=== PATIENT | male | born 1965 | race Hispanic/Latino ===

== ENCOUNTER 2018-10-01 06:40 | Emergency (ER) | payer SELFPAY ==
[~2018-10-01] VITALS: Ht 167.6 cm; Wt 71.2 kg
--- OUTSIDE RECORDS SUMMARY | 2018-10-01 06:45 | XMS REPORT | Continuity of Care Document ---
Author Author [facility] Interface Address Unknown Phone Unavailable Problems Problem Status Onset Date Classification Date Reported Comments Source CHEST PAIN Active 09/24/2018 [facility] Discharge Diagnosis: Vertigo 02/11/2017 02/14/2017 [facility] WEAKNESS Active 02/11/2017 [facility] GERD (<span ID="[id number]</span>) Active Problem 02/14/2017 [facility] Hypercholesteremia Active Problem 02/14/2017 [facility] Hypercholesterolemia Active Problem 02/14/2017 [facility] Multiple lipomas Active Problem 02/14/2017 [facility] Medications Medication Details Route Status Patient Instructions Ordering Provider Order Date Source meclizine 25 mg oral tablet 25 mg=1 tab, PO, TID, PRN for dizziness, X 20 day, # 60 tab, 0 Refill(s) Active 02/11/2017 [facility] Meclizine 25 mg, 1 tab, Route: PO, Drug form: TAB, ONCE, Dosing Weight 74.091, kg, Priority: STAT, Start date: 02/11/17 7:21:00 CDT, Stop date: 02/11/17 7:21:00 CDTNotes: (Same as: Antivert) Inactive 02/11/2017 [facility] Sodium Chloride 0.154 MEQ/ML Injectable Solution 1,000 mL, 1,000 ml/hr, Infuse Over: 1 hr, Route: IV, ONCE, Priority: STAT, Dosing Weight 74.091 kg, Start date: 02/11/17 6:14:00 CDT, Duration: 1 doses or times, Stop date: 02/11/17 6:14:00 CDT Inactive 02/11/2017 [facility] Allergies, Adverse Reactions, Alerts Substance Category Reaction Severity Reaction type Status Date Reported Comments Source Immunizations Immunization Date Given Site Status Last Updated Comments Source Results Order Name Results Value Reference Range Date Interpretation Comments Source Chest 1view DX Chest 1view DX Clinical Indication: - cp Comparison: 02/11/2017 FINDINGS: AP chest radiograph was obtained. MEDIASTINUM: The cardiac silhouette is normal in size. The aorta is unremarkable. LUNGS: Lung volumes are maintained. There are no focal infiltrates or effusions. There are no pneumothoraces noted. BONES: The visualized osseous structures are unremarkable. IMPRESSION: No acute infiltrates or effusions. SL: [id number] 09/24/2018 - - Read by: David Sidhu MD Dictated Date/time: 09/24/18 06:18 Electronically Signed by: David Sidhu MD 09/24/18 06:18 FINAL REPORT [facility] URINE AND STOOL UA Urobilinogen <=1.0 mg/dL 0.1 - 1.0 02/11/2017 [facility] URINE AND STOOL UA Color Ltyellow 02/11/2017 [facility] URINE AND STOOL UA Spec Grav 1.008 <=1.030 02/11/2017 [facility] URINE AND STOOL UA pH 7.0 5.0 - 8.0 02/11/2017 [facility] URINE AND STOOL UA Turbidity Clear (02/11/17 9:27 AM) Clear 02/11/2017 [facility] URINE AND STOOL UA Bili Negative *NA* (02/11/17 9:27 AM) Negative 02/11/2017 [facility] URINE AND STOOL UA Ketones Negative mg/dL Negative mg/dL 02/11/2017 [facility] URINE AND STOOL UA Glucose Negative mg/dL Negative mg/dL 02/11/2017 [facility] URINE AND STOOL UA Nitrite Negative (02/11/17 9:27 AM) Negative 02/11/2017 [facility] URINE AND STOOL UA Blood Negative (02/11/17 9:27 AM) Negative 02/11/2017 [facility] URINE AND STOOL UA Protein Negative mg/dL Negative mg/dL 02/11/2017 [facility] URINE AND STOOL UA Sq Epi Occasional /LPF Few /LPF 02/11/2017 [facility] URINE AND STOOL UA Bacteria Occasional /HPF None Seen /HPF 02/11/2017 [facility] URINE AND STOOL UA Leuk Est Negative (02/11/17 9:27 AM) Negative 02/11/2017 [facility] URINE AND STOOL UA Mucus Few /LPF None Seen /LPF 02/11/2017 [facility] CARDIAC ENZYMES Troponin-I null 0.00 - 0.40 02/11/2017 [facility] CHEM PANEL Magnesium Lvl 2.1 mg/dL 1.8 - 2.4 02/11/2017 [facility] CHEM PANEL A/G Ratio 1.1 0.7 - 1.6 02/11/2017 [facility] CHEM PANEL AGAP 12.6 meq/L 10.0 - 20.0 02/11/2017 [facility] CHEM PANEL Globulin 3.5 g/dL 2.7 - 4.2 02/11/2017 [facility] CHEM PANEL B/C Ratio 13 6 - 25 02/11/2017 [facility] CHEM PANEL eGFR 88 mL/min/1.73m2 02/11/2017 Result Comment: The eGFR is calculated using the CKD-EPI formula. In most young, healthy individuals the eGFR will be >90 mL/min/1.73m2. The eGFR declines with age. An eGFR of 60-89 may be normal in some populations, particularly the elderly, for whom the CKD-EPI formula has not been extensively validated. Use of the eGFR is not recommended in the following populations: Individuals with unstable creatinine concentrations, including patients and those with serious co-morbid conditions. Patients with extremes in muscle mass or diet. The data above are obtained from the National Kidney Disease Education Program (NKDEP) which additionally recommends that when the eGFR is used in patients with extremes of body mass index for purposes of drug dosing, the eGFR should be multiplied by the estimated BMI. [facility] CHEM PANEL Glucose Lvl 112 mg/dL 70 - 99 02/11/2017 [facility] CHEM PANEL Creatinine Lvl 1.00 mg/dL 0.50 - 1.40 02/11/2017 [facility] CHEM PANEL Sodium Lvl 140 meq/L 135 - 145 02/11/2017 [facility] CHEM PANEL BUN 13 mg/dL 7 - 22 02/11/2017 [facility] CHEM PANEL CO2 26 meq/L 24 - 32 02/11/2017 [facility] CHEM PANEL Potassium Lvl 3.6 meq/L 3.5 - 5.1 02/11/2017 [facility] CHEM PANEL Chloride Lvl 105 meq/L 95 - 109 02/11/2017 [facility] CHEM PANEL Calcium Lvl 8.0 mg/dL 8.5 - 10.5 02/11/2017 [facility] CHEM PANEL Total Protein 7.3 g/dL 6.4 - 8.4 02/11/2017 [facility] CHEM PANEL AST 22 unit/L 0 - 37 02/11/2017 [facility] CHEM PANEL ALT 28 unit/L 0 - 65 02/11/2017 [facility] CHEM PANEL Albumin Lvl 3.8 g/dL 3.5 - 5.0 02/11/2017 [facility] CHEM PANEL Bili Total 0.4 mg/dL 0.2 - 1.3 02/11/2017 [facility] CHEM PANEL Alk Phos 78 unit/L 39 - 136 02/11/2017 [facility] RDW 12.6 % 11.5 - 14.5 02/11/2017 [facility] MCV 86.1 fL 80.0 - 94.0 02/11/2017 [facility] MCHC 36.2 g/dL 32.0 - 36.0 02/11/2017 [facility] MCH 31.2 pg 27.0 - 31.0 02/11/2017 [facility] Platelet 237 K/CMM 133 - 450 02/11/2017 [facility] MPV 8.8 fL 7.4 - 10.4 02/11/2017 [facility] RBC 5.14 M/CMM 4.70 - 6.10 02/11/2017 [facility] Hgb 16.0 g/dL 14.0 - 18.0 02/11/2017 [facility] WBC 6.5 K/CMM 3.7 - 10.4 02/11/2017 [facility] Hct 44.3 % 42.0 - 54.0 02/11/2017 [facility] Eosinophils # 0.2 K/CMM 0.0 - 0.5 02/11/2017 [facility] Basophils 0.5 % 0.0 - 1.0 02/11/2017 [facility] Eosinophils 3.5 % 0.0 - 4.0 02/11/2017 [facility] Segs-Bands # 3.6 K/CMM 1.5 - 8.1 02/11/2017 [facility] Monocytes # 0.5 K/CMM 0.0 - 0.8 02/11/2017 [facility] Lymphocytes # 2.2 K/CMM 1.0 - 5.5 02/11/2017 [facility] Monocytes 7.6 % 2.0 - 12.0 02/11/2017 [facility] Lymphocytes 33.5 % 20.0 - 40.0 02/11/2017 [facility] Segs 54.9 % 45.0 - 75.0 02/11/2017 [facility] Chest 1view DX Chest 1view DX EXAM: Chest 1view DX DATE: 02/11/2017 6:14 AM CDT INDICATION: Chest pain - cough COMPARISON: None. IMPRESSION: Grossly normal cardiac silhouette and mediastinum. No focal consolidation, significant pleural effusion or pneumothorax. SL: [id number] 02/11/2017 - - Read by: Lawrence Hampton MD Dictated Date/time: 02/11/17 08:03 Electronically Signed by: Lawrence Hampton MD 02/11/17 08:12 FINAL REPORT [facility] Brain wo contrast CT Brain wo contrast CT EXAM: CT BRAIN WITHOUT CONTRAST DATE: 02/11/2017 6:14 AM CDT INDICATION: - dizzy ADDITIONAL INFORMATION AND CT DLP: 901.26 mGy-cm. COMPARISON: None. TECHNIQUE: Routine axial CT images of the brain were obtained. IV contrast: None. FINDINGS: Non-contrast images of the head demonstrate no edema, hemorrhage, mass lesion or other acute intracranial abnormality. Priest-white matter distinction is preserved. The ventricles are normal. The basal cisterns and sulci are normal in size. Atherosclerotic calcification of the distal internal carotid arteries. A 1.2 cm partially calcified superior parietal scalp lesion is present. Mild chronic inflammatory change of the paranasal sinus. Partial opacification of the mastoid air cells. IMPRESSION: 1. No definite acute infarct or intracranial hemorrhage detected. If there is further concern for intracranial pathology or acute stroke, MRI of the brain may be performed for complete assessment. SL: [id number] 02/11/2017 - - Read by: Lawrence Hampton MD Dictated Date/time: 02/11/17 07:39 Electronically Signed by: Lawrence Hampton MD 02/11/17 07:43 FINAL REPORT [facility] Vital Signs Vital Sign Value Date Comments Source Systolic (mm Hg) 128 02/11/2017 [facility] Diastolic (mm Hg) 83 02/11/2017 [facility] Temperature Oral (F) 97.5 F 02/11/2017 [facility] Respitory Rate 20 02/11/2017 [facility] Respitory Rate 20 02/11/2017 [facility] Heart Rate 78 02/11/2017 [facility] Systolic (mm Hg) 139 02/11/2017 [facility] Diastolic (mm Hg) 92 02/11/2017 [facility] Systolic (mm Hg) 124 02/11/2017 [facility] Diastolic (mm Hg) 89 02/11/2017 [facility] Heart Rate 75 02/11/2017 [facility] Respitory Rate 20 02/11/2017 [facility] Temperature Oral (F) 97.4 F 02/11/2017 [facility] Temperature Oral (F) 97.8 F 02/11/2017 [facility] Heart Rate 75 02/11/2017 [facility] Height 167.64 cm 02/11/2017 [facility] BMI Calculated 26.36 02/11/2017 [facility] Weight 74.091 02/11/2017 [facility] Encounters Location Location Details Encounter Type Encounter Number Reason For Visit Attending Provider ADM Date DC Date Status Source Outpatient [id number] JUAN SERVIN 11/09/2016 Active [facility] Outpatient [id number] JUAN SERVIN 01/12/2017 Active [facility] Outpatient [id number] LINDSEY ORTIZ 01/27/2017 Active [facility] Emergency [id number] Eddie Catalan 02/11/2017 02/11/2017 [facility] Outpatient [id number] JUAN SERVIN 06/13/2017 Active [facility] Outpatient [id number] JUAN SERVIN 05/04/2018 Active [facility] Outpatient [id number] JUAN SERVIN 07/27/2018 Active [facility] Outpatient [id number] JUAN SERVIN 10/10/2018 Active [facility] Procedures Procedure Code Date Perfomer Comments Source
--- OUTSIDE RECORDS SUMMARY | 2018-10-01 06:46 | XMS REPORT | Summary of Care ---
Author Author [facility] Organization [facility] Address Unknown Phone Unavailable Encounter AB Rios(ARCELIA) [id number] Date(s): 02/11/17 - 02/11/[address] [facility] [address] [place] [address]- Discharge Diagnosis: Vertigo Discharge Disposition: Home or Self Care Attending Physician: Eddie Catalan MD Vital Signs 1 2 3 Most recent to oldest [Reference Range]: 167.64 cm (02/11/17 5:46 AM) Height 97.5 DegF (02/11/17 11:10 AM) 97.4 DegF (02/11/17 7:55 AM) 97.8 DegF (02/11/17 6:02 AM) Temperature Oral [96.4-99.1 DegF] 128/83 mmHg (02/11/17 11:10 AM) 139/92 mmHg (02/11/17 9:25 AM) 124/89 mmHg (02/11/17 7:55 AM) Blood Pressure [90-140/60-90 mmHg] 20 BRMIN (02/11/17 11:10 AM) 20 BRMIN (02/11/17 9:25 AM) 20 BRMIN (02/11/17 7:55 AM) Respiratory Rate [14-20 BRMIN] 78 bpm (02/11/17 9:25 AM) 75 bpm (02/11/17 7:55 AM) 75 bpm (02/11/17 6:02 AM) Peripheral Pulse Rate [60-100 bpm] 74.091 kg (02/11/17 5:46 AM) Weight 26.36 m2 (02/11/17 5:46 AM) Body Mass Index Problem List Condition Effective Dates Status Health Status Informant GERD Active (gastroesophageal reflux disease)(Confirmed) Hypercholesteremia(C Active onfirmed) Hypercholesterolemia Active (Confirmed) Multiple Active lipomas(Confirmed) Multiple Active lipomas(Confirmed) Allergies, Adverse Reactions, Alerts Substance Reaction Severity Status NKDA Active Medications meclizine 25 mg, 1 tab, Route: PO, Drug form: TAB, ONCE, Dosing Weight 74.091, kg, Priorit y: STAT, Start date: 02/11/17 7:21:00 CDT, Stop date: 02/11/17 7:21:00 CDT Notes: (Same as: Antivert) Start Date: 02/11/17 Stop Date: 02/11/17 Status: Completed meclizine 25 mg oral tablet 25 mg=1 tab, PO, TID, PRN for dizziness, X 20 day, # 60 tab, 0 Refill(s) Start Date: 02/11/17 Stop Date: 03/03/17 Status: Ordered NS (Bolus) IV 1,000 mL, 1,000 ml/hr, Infuse Over: 1 hr, Route: IV, ONCE, Priority: STAT, Dosin g Weight 74.091 kg, Start date: 02/11/17 6:14:00 CDT, Duration: 1 doses or times , Stop date: 02/11/17 6:14:00 CDT Start Date: 02/11/17 Stop Date: 02/11/17 Status: Completed Results ELECTROLYTES Most recent to 1 oldest [Reference Range]: Sodium Lvl [135-145 140 mEq/L mEq/L] (02/11/17 6:23 AM) Potassium Lvl 3.6 mEq/L [3.5-5.1 mEq/L] (02/11/17 6:23 AM) Chloride Lvl [95-109 105 mEq/L mEq/L] (02/11/17 6:23 AM) CO2 [24-32 mEq/L] 26 mEq/L (02/11/17 6:23 AM) AGAP [10.0-20.0 12.6 mEq/L mEq/L] (02/11/17 6:23 AM) CHEM PANEL Most recent to 1 oldest [Reference Range]: Creatinine Lvl 1.00 mg/dL [0.50-1.40 mg/dL] (02/11/17 6:23 AM) eGFR 88 mL/min/1.73m2 1 *NA* (02/11/17 6:23 AM) BUN [7-22 mg/dL] 13 mg/dL (02/11/17 6:23 AM) B/C Ratio [6-25] 13 (02/11/17:23 AM) Glucose Lvl [70-99 112 mg/dL mg/dL] *HI* (02/11/17:23 AM) Total Protein 7.3 g/dL [6.4-8.4 g/dL] (02/11/1723 AM) Albumin Lvl [3.5-5.0 3.8 g/dL g/dL] (02/11/1723 AM) Globulin [2.7-4.2 3.5 g/dL g/dL] (02/11/1723 AM) A/G Ratio [0.7-1.6] 1.1 (02/11/1723 AM) Calcium Lvl 8.0 mg/dL [8.5-10.5 mg/dL] *LOW* (02/11/1723 AM) Magnesium Lvl 2.1 mg/dL [1.8-2.4 mg/dL] (02/11/17:23 AM) ALT [0-65 unit/L] 28 unit/L (02/11/17:23 AM) AST [0-37 unit/L] 22 unit/L (02/11/17:23 AM) Alk Phos [39-136 78 unit/L unit/L] (02/11/17:23 AM) Bili Total [0.2-1.3 0.4 mg/dL mg/dL] (02/11/17:23 AM) 1Result Comment: The eGFR is calculated using the [...] from the National Kidney Disease Education Program ( NKDEP) which additionally recommends that when the eGFR is used in patients with extremes of body mass index for purposes of drug dosing, the eGFR should be mul tiplied by the estimated BMI. CARDIAC ENZYMES Most recent to 1 oldest [Reference Range]: Troponin-I <0.02 ng/mL [0.00-0.40 ng/mL] (02/11/17 6:23 AM) URINE AND STOOL Most recent to 1 oldest [Reference Range]: UA Turbidity [Clear] Clear (02/11/17 9:27 AM) UA Color Ltyellow *NA* (02/11/17 9:27 AM) UA pH [5.0-8.0] 7.0 (02/11/17 9:27 AM) UA Spec Grav 1.008 [<=1.030] (02/11/17 9:27 AM) UA Glucose [Negative Negative mg/dL mg/dL] *NA* (02/11/17 9:27 AM) UA Blood [Negative] Negative (02/11/17 9:27 AM) UA Ketones [Negative Negative mg/dL mg/dL] *NA* (02/11/17 9:27 AM) UA Protein [Negative Negative mg/dL mg/dL] (02/11/17 9:27 AM) UA Urobilinogen <=1.0 mg/dL [0.1-1.0 mg/dL] *NA* (02/11/17 9:27 AM) UA Bili [Negative] Negative *NA* (02/11/17 9:27 AM) UA Leuk Est Negative [Negative] (02/11/17 9:27 AM) UA Nitrite Negative [Negative] (02/11/17 9:27 AM) UA Bacteria [None Occasional /HPF Seen /HPF] *NA* (02/11/17 9:27 AM) UA Sq Epi [Few /LPF] Occasional /LPF *NA* (02/11/17 9:27 AM) UA Mucus [None Seen Few /LPF /LPF] *NA* (02/11/17 9:27 AM) HEMATOLOGY Most recent to 1 oldest [Reference Range]: WBC [3.7-10.4 K/CMM] 6.5 K/CMM (02/11/17 6:23 AM) RBC [4.70-6.10 5.14 M/CMM M/CMM] (02/11/17:23 AM) Hgb [14.0-18.0 g/dL] 16.0 g/dL (02/11/1723 AM) Hct [42.0-54.0 %] 44.3 % (02/11/17:23 AM) MCV [80.0-94.0 fL] 86.1 fL (02/11/17:23 AM) MCH [27.0-31.0 pg] 31.2 pg *HI* (02/11/1723 AM) MCHC [32.0-36.0 36.2 g/dL g/dL] *HI* (02/11/1723 AM) RDW [11.5-14.5 %] 12.6 % (02/11/1723 AM) Platelet [133-450 237 K/CMM K/CMM] (02/11/17:23 AM) MPV [7.4-10.4 fL] 8.8 fL (02/11/17:23 AM) Segs [45.0-75.0 %] 54.9 % (02/11/17:23 AM) Lymphocytes 33.5 % [20.0-40.0 %] (02/11/17:23 AM) Monocytes [2.0-12.0 7.6 % %] (02/11/17:23 AM) Eosinophils [0.0-4.0 3.5 % %] (02/11/17:23 AM) Basophils [0.0-1.0 0.5 % %] (02/11/17:23 AM) Segs-Bands # 3.6 K/CMM [1.5-8.1 K/CMM] (02/11/17 6:23 AM) Lymphocytes # 2.2 K/CMM [1.0-5.5 K/CMM] (02/11/17 6:23 AM) Monocytes # [0.0-0.8 0.5 K/CMM K/CMM] (02/11/17 6:23 AM) Eosinophils # 0.2 K/CMM [0.0-0.5 K/CMM] (02/11/17 6:23 AM) Immunizations No data available for this section Procedures No data available for this section Social History Social History Type Response Alcohol Current, Type Beer, Wine. Frequency: 1-2 times per month. Smoking Status Never smoker; Exposure to Tobacco Smoke None; Cigarette Smoking Last 365 Days Yes; Reg Smoking Cessation Counseling No Assessment and Plan No data available for this section
== END 2018-10-01 07:41 | disposition left against medical advice (07) ==
LOC: ER 06:40
DX: R42 Dizziness and giddiness (principal)